=== PATIENT | female | born 2005 | race Two or more races ===

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

== ENCOUNTER 2025-06-21 10:08 | Emergency (ER) | payer OTHER ==
[~2025-06-21] VITALS: Ht 157.5 cm; Wt 47.6 kg
[2025-06-21] MEDS ORDERED: FAMOtidine 2 MG/ML REDILUIDO IV SCH (11:30)
[2025-06-21] MEDS ORDERED: ONDANSETRON HCL 2 MG/ML VIAL IV SCH (11:30)
[2025-06-21] MEDS ORDERED: 0.9 % SODIUM CHLORIDE 1,000 ML IV SCH (11:30)
[2025-06-21] MEDS ORDERED: DEXTROSE 5 % AND 0.9 % NACL 1,000 ML IV SCH (11:30)
[2025-06-21] MEDS ORDERED: KETOROLAC TROMETHAMINE 30 MG VIAL IV ONE (11:30)
[2025-06-21 11:55] LABS: BASO % 0.2 % (0.1-1.2); EOS # 0.01 (0.04-0.54); EOS % 0.1 % (0.7-7.0); LYMPH # 0.96 (1.18-3.74); LYMPH % 7.7 % (19.3-53.1); MEAN PLATELET VOLUME 9.90 fl (9.4-12.4); MONO # 0.35 (0.24-0.82); MONO % 2.8 % (4.7-12.5); NEUT # 11.08 (1.56-6.13); NEUT % 88.9 % (34.0-71.1); RED CELL DISTRIBUTION WIDTH 11.6 % (11.6-14.4)
[2025-06-21 12:23] LABS: ALT/SGPT 16.0 U/L (12-78); AST/SGOT 13.0 U/L (15-37); BILIRUBIN TOTAL 1.16 mg/dL (0.3-1.2); BUN CREA RATIO 13.0 (7.0-25.0); CREATININE SERUM 0.7 mg/dL (0.55-1.02); GFR 106.68; GLOBULINA 3.6 G/DL (2.4-3.5); GLUCOSE FASTING 115.0 mg/dL (65-100); OSMOLALITY SERUM 281.0 MOSM/KG (275-295)
[2025-06-21] MEDS ORDERED: TAMSULOSIN HCL 0.4 MG CAP PO SCH (15:03)
[2025-06-21 16:09] LABS: URINE APPEARANCE Clear; URINE BILIRRUBIN Negative (NEGATIVE); URINE BLOOD Moderate; URINE COLOR Yellow; URINE GLUCOSE Negative (NEGATIVE); URINE KETONE Negative (NEGATIVE); URINE LEUKOCYTE Negative; URINE NITRATE Negative; URINE PROTEIN Negative (NEGATIVE); URINE UROBILINOGEN 0.2 E.U./dl
[2025-06-21 16:12] LABS: URINE BACTERIA 272.3 uL (0.0-1933); URINE EPITHELIAL CELLS 9.8 uL (0.0-38.8); URINE RBC 484.1 uL (0.0-20.8); URINE WBC 22.8 uL (0.0-23.2)
[2025-06-21 16:14] LABS: URINE CAST 0.14 uL (0.0-1.40)
== END 2025-06-21 16:45 | disposition home or self-care (01) ==
LOC: ER 10:25 → EMR PED 10:25
PROVIDERS: Emergency Medicine Pediatric Emergency Medicine
DX: N20.1 Calculus of ureter (principal); R10.2 Pelvic and perineal pain; E86.0 Dehydration
CPT/HCPCS: 36415; 74177; Q9965